=== PATIENT | female | born 1990 | race Caucasian/White ===

== ENCOUNTER 2017-11-13 11:55 | Emergency (ER) | payer OTHER ==
[~2017-11-13] VITALS: Ht 177.8 cm; Wt 68.0 kg
[~2017-11-13 11:55] MED LIST: ABILIFY 5 MG; ACET325 PO; BCP; BENADRYL25 MG PO; Benadryl 50 mg50 MG PO; CIPR500 PO; CYCL10 PO; Cleocin HCl300 MG PO; DIPH50 PO; ERYT.5TO RIGHTEYE; HYDACE5 PO; IBUP600 PO; IBUP800 PO; METPRE4DP PO; NAPR550 PO; Naprosyn500 MG PO; Norco 5-325 Ta1 EACH PO; OMEP10ER; PRED20 PO; Pepcid20 MG PO; Prednisone10 MG PO; Prednisone20 MG PO; RANI150 PO; RXCEPH500; RXNAPNA550 PO; SUMA25; TRIA80TC TOP; [UNRECOGNIZED DRUG - OTHER]
[2017-11-13 12:58] LABS: BASOPHILS ABSOLUTE AUTO 0.02 K/mm3 (0.00-0.23); BASOPHILS PERCENT AUTO 0 % (0-2); EOSINOPHILS ABSOLUTE AUTO 0.18 K/mm3 (0.00-0.68); EOSINOPHILS PERCENT AUTO 3 % (0-6); Hematocrit 41.1 % (33.0-51.0); Hemoglobin 13.3 g/dL (11.5-16.0); IMMATURE GRAN ABSOLUTE AUTO 0.01 K/mm3 (0.00-0.10); IMMATURE GRAN PERCENT AUTO 0 % (0-1); LYMPHOCYTES PERCENT AUTO 27 % (21-46); MONOCYTES ABSOLUTE AUTO 0.58 K/mm3 (0.16-1.47); MONOCYTES PERCENT AUTO 9 % (4-13); Mean Corpuscular HGB 27.9 pg (26.0-34.0); Mean Corpuscular HGB Conc 32.4 g/dL (31.5-36.5); Mean Corpuscular Volume 86 fL (80-100); Mean Platelet Volume 10.7 fL (9.1-12.4); NEUTROPHILS ABSOLUTE AUTO 4.11 K/mm3 (1.96-9.15); NEUTROPHILS PERCENT AUTO 61 % (41-73); Platelet Count 305 K/mm3 (150-400); RDW Coefficient Variation 13.2 % (11.7-14.2); RDW Standard Deviation 41.1 fL (35.1-46.3); Red Blood Cell Count 4.76 M/mm3 (3.80-5.20)
[2017-11-13 13:01] LABS: Source, Urine Clean Catch
[2017-11-13 13:08] LABS: Bilirubin, Urine Neg (Neg); Blood, Urine Neg (Neg); Glucose Qualitative, Urine Neg (Neg); Ketones, Urine Neg (Neg); Leukocyte Esterase, Urine 2+ (Neg); Nitrite, Urine Neg (Neg); Protein, Urine 2+ (Neg); Specific Gravity, Urine 1.015 (1.003-1.022); Urobilinogen, Urine NORM (Normal)
[2017-11-13 13:23] LABS: Alanine Aminotransfer (ALT/SGP 25 U/L (12-78); Albumin, Blood 3.8 g/dL (3.4-5.0); Albumin/Globulin Ratio 0.9 (0.8-1.8); Alk Phos 72 U/L (50-136); Anion Gap 8 mmol/L (6-16); Aspartate Aminotrans (AST/SGOT 15 U/L (12-37); Bilirubin, Total 0.2 mg/dL (0.1-1.0); Blood Urea Nitrogen 11 mg/dL (8-24); Bun/Creatinine Ratio 18.2 (12.0-20.0); CO2, Blood 27 mmol/L (21-32); Calcium, Blood 8.8 mg/dL (8.5-10.1); Chloride, Blood 105 mmol/L (98-108); Globulin, Blood 4.1 g/dL (2.2-4.0); Glomerular Filtration Rate >60 (60-); Glucose, Blood 70 mg/dL (70-99); Potassium, Blood 3.6 mmol/L (3.5-5.5); Sodium, Blood 140 mmol/L (136-145); Total Protein, Blood 7.9 g/dL (6.4-8.2)
[2017-11-13 13:23] LABS: Appearance, Urine Cloudy (Clear); Color, Urine Yellow (P-Yellow)
[2017-11-13 13:24] LABS: Bacteria Few /hpf; Red Blood Cells, Urine Not Seen /hpf (0-2); Squamous Epithelial Cells Few /hpf (Few)
[2017-11-13] MEDS ORDERED: IBUP600 PO (18:19)
[2018-04-10] MEDS ORDERED: CYCL10 PO (20:58)
[2018-08-09] MEDS ORDERED: Prednisone20 MG PO (22:27)
== END 2017-11-13 18:07 | disposition home or self-care (01) ==
LOC: ER 11:55
PROVIDERS: Emergency Medicine
DX: R10.31 Right lower quadrant pain (principal); Z79.52 Long term (current) use of systemic steroids; J45.909 Unspecified asthma, uncomplicated; F31.9 Bipolar disorder, unspecified; G43.909 Migraine, unspecified, not intractable, without status migrainosus; F17.210 Nicotine dependence, cigarettes, uncomplicated
CPT/HCPCS: 36415; 76856; 80053; 81001; 81025; 85025; 87086; 96374; 96375; 99284; J1170; J2405

== ENCOUNTER 2018-10-09 11:04 | Emergency (ER) | payer OTHER ==
[~2018-10-09] VITALS: Ht 177.8 cm; Wt 79.4 kg
[2018-10-09 11:48] LABS: BASOPHILS ABSOLUTE AUTO 0.04 K/mm3 (0.00-0.23); BASOPHILS PERCENT AUTO 0 % (0-2); EOSINOPHILS ABSOLUTE AUTO 0.06 K/mm3 (0.00-0.68); EOSINOPHILS PERCENT AUTO 0 % (0-6); Hematocrit 33.3 % (33.0-51.0); Hemoglobin 10.6 g/dL (11.5-16.0); IMMATURE GRAN ABSOLUTE AUTO 0.13 K/mm3 (0.00-0.10); IMMATURE GRAN PERCENT AUTO 1 % (0-1); LYMPHOCYTES ABSOLUTE AUTO 2.94 K/mm3 (0.84-5.20); LYMPHOCYTES PERCENT AUTO 16 % (21-46); MONOCYTES ABSOLUTE AUTO 0.65 K/mm3 (0.16-1.47); MONOCYTES PERCENT AUTO 4 % (4-13); Mean Corpuscular HGB 25.9 pg (26.0-34.0); Mean Corpuscular HGB Conc 31.8 g/dL (31.5-36.5); Mean Corpuscular Volume 81 fL (80-100); Mean Platelet Volume 10.4 fL (9.1-12.4); NEUTROPHILS ABSOLUTE AUTO 14.06 K/mm3 (1.96-9.15); NEUTROPHILS PERCENT AUTO 79 % (41-73); Platelet Count 352 K/mm3 (150-400); RDW Coefficient Variation 15.5 % (11.7-14.2); RDW Standard Deviation 45.2 fL (35.1-46.3); White Blood Cell Count 17.88 K/mm3 (4.00-11.30)
[2018-10-09 11:54] LABS: Source, Urine Voided
[2018-10-09 12:00] LABS: Bilirubin, Urine Neg (Neg); Blood, Urine Neg (Neg); Glucose Qualitative, Urine Neg (Neg); Ketones, Urine Neg (Neg); Leukocyte Esterase, Urine 2+ (Neg); Nitrite, Urine Neg (Neg); Protein, Urine Neg (Neg); Specific Gravity, Urine 1.015 (1.003-1.022); Urobilinogen, Urine NORM (Normal)
[2018-10-09 12:09] LABS: Appearance, Urine Clear (Clear); Color, Urine Yellow (P-Yellow)
[2018-10-09 12:12] LABS: Bacteria Few /hpf; Red Blood Cells, Urine 0-2 /hpf (0-2); Squamous Epithelial Cells Few /hpf (Few); Trichomonas Few /hpf
[2018-10-09 12:14] LABS: U Amphetamine Screen DETECTED; U Barbituate Screen Not Detected; U Benzodiazapine Screen Not Detected; U Buprenorphine Screen Not Detected; U Cannabinoids Screen DETECTED; U Cocaine Screen Not Detected; U Methadone Screen Not Detected; U Methamphetamine Screen DETECTED; U Opiates Screen Not Detected; U Oxycodone Screen Not Detected; U Phencyclidine Screen Not Detected; U Propoxyphene Screen Not Detected
[2018-10-09 12:19] LABS: Alanine Aminotransfer (ALT/SGP 18 U/L (12-78); Albumin, Blood 2.9 g/dL (3.4-5.0); Albumin/Globulin Ratio 0.7 (0.8-1.8); Alk Phos 88 U/L (50-136); Anion Gap 10 mmol/L (6-16); Aspartate Aminotrans (AST/SGOT 13 U/L (12-37); Bilirubin, Total 0.1 mg/dL (0.1-1.0); Blood Urea Nitrogen 9 mg/dL (8-24); Bun/Creatinine Ratio 16.4 (12.0-20.0); CO2, Blood 24 mmol/L (21-32); Calcium, Blood 7.8 mg/dL (8.5-10.1); Chloride, Blood 108 mmol/L (98-108); Creatinine, Blood 0.55 mg/dL (0.40-1.00); Glomerular Filtration Rate >60 (60-); Glucose, Blood 111 mg/dL (70-99); Potassium, Blood 3.3 mmol/L (3.5-5.5); Sodium, Blood 142 mmol/L (136-145); Total Protein, Blood 6.9 g/dL (6.4-8.2)
[2018-10-09 12:22] LABS: Beta HCG, Quantitative, Serum 10256 mIU/mL (0-3)
[2018-10-09] MEDS ORDERED: Prenatabs Rx T1 EACH PO (12:54)
== END 2018-10-09 13:40 | disposition home or self-care (01) ==
LOC: ER 11:04
PROVIDERS: Emergency Medicine
DX: O99.322 Drug use complicating pregnancy, second trimester (principal); F15.90 Other stimulant use, unspecified, uncomplicated; Z79.52 Long term (current) use of systemic steroids; O99.332 Smoking (tobacco) complicating pregnancy, second trimester; F17.210 Nicotine dependence, cigarettes, uncomplicated; Z3A.22 22 weeks gestation of pregnancy
CPT/HCPCS: 36415; 76705; 76805; 80053; 81001; 83690; 84702; 85025; 87086; 99284-25

== ENCOUNTER → 2018-10-23 | Outpatient (CLI) | payer OTHER ==
[~2018-10-23] MED LIST changes: +Prenatabs Rx T1 EACH PO
[2018-10-29 10:10] LABS: CHLAMYDIA BY NAA Negative (Negative); GONOCOCCUS BY NAA Negative (Negative)
[2018-10-30 09:32] LABS: TRICH VAG BY NAA Positive (Negative)
== END | disposition home or self-care (01) ==
LOC: LAB 14:44 → LAB SHORT 14:44
PROVIDERS: Obstetrics & Gynecology
DX: Z36.89 Encounter for other specified antenatal screening (principal)
CPT/HCPCS: 87491; 87591; 87661; G0123

== ENCOUNTER 2018-12-27 22:01 | Emergency (ER) | payer OTHER ==
[~2018-12-27] VITALS: Ht 177.8 cm; Wt 88.9 kg
== END 2018-12-27 22:39 | disposition left against medical advice (07) ==
LOC: ER 22:01
DX: Z53.21 Procedure and treatment not carried out due to patient leaving prior to being seen by health care provider (principal)

== ENCOUNTER → 2019-01-13 | Outpatient (CLI) | payer OTHER | END | disposition home or self-care (01) | LOC: LAB SHORT 12:12 → LAB 12:12 | DX: Z34.00 Encounter for supervision of normal first pregnancy, unspecified trimester (principal) | CPT/HCPCS: 87081; 87653 ==

== ENCOUNTER 2019-02-08 04:10 | Inpatient (IN) | payer OTHER ==
[~2019-02-08] VITALS: Ht 177.8 cm; Wt 97.2 kg
[2019-02-08 05:23] LABS: U Amphetamine Screen Not Detected; U Barbituate Screen Not Detected; U Benzodiazapine Screen Not Detected; U Buprenorphine Screen Not Detected; U Cannabinoids Screen Not Detected; U Cocaine Screen Not Detected; U Methadone Screen Not Detected; U Methamphetamine Screen Not Detected; U Opiates Screen Not Detected; U Oxycodone Screen Not Detected; U Phencyclidine Screen Not Detected; U Propoxyphene Screen Not Detected
[2019-02-08 06:19] LABS: BASOPHILS ABSOLUTE AUTO 0.03 K/mm3 (0.00-0.23); BASOPHILS PERCENT AUTO 0 % (0-2); EOSINOPHILS ABSOLUTE AUTO 0.13 K/mm3 (0.00-0.68); EOSINOPHILS PERCENT AUTO 1 % (0-6); Hematocrit 34.5 % (33.0-51.0); Hemoglobin 11.2 g/dL (11.5-16.0); IMMATURE GRAN ABSOLUTE AUTO 0.06 K/mm3 (0.00-0.10); IMMATURE GRAN PERCENT AUTO 0 % (0-1); LYMPHOCYTES ABSOLUTE AUTO 2.19 K/mm3 (0.84-5.20); LYMPHOCYTES PERCENT AUTO 15 % (21-46); MONOCYTES ABSOLUTE AUTO 1.03 K/mm3 (0.16-1.47); MONOCYTES PERCENT AUTO 7 % (4-13); Mean Corpuscular HGB 26.9 pg (26.0-34.0); Mean Corpuscular HGB Conc 32.5 g/dL (31.5-36.5); Mean Corpuscular Volume 83 fL (80-100); Mean Platelet Volume 11.8 fL (9.1-12.4); NEUTROPHILS ABSOLUTE AUTO 11.56 K/mm3 (1.96-9.15); NEUTROPHILS PERCENT AUTO 77 % (41-73); Platelet Count 283 K/mm3 (150-400); RDW Coefficient Variation 17.4 % (11.7-14.2); RDW Standard Deviation 52.3 fL (35.1-46.3); Red Blood Cell Count 4.16 M/mm3 (3.80-5.20)
--- NOTE | 2019-02-08 06:21 | NUR ---
iv ATTEMPTED X 4 BY l&d RNs IV started by Devendra, MATERIAL ASSEMBLER nurse using US localization/insertion finder
--- NOTE | 2019-02-08 07:19 | NUR ---
upon admission pt requested that a UA (drug screen) be done on her boyfriend. She stated that she thought that he has "fallen off the wagon". Informed her that we could not do the test on him.
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
[2019-02-08 13:14] LABS: PCO2 Cord - Arterial 37.9 mmHg (40-50); PO2 Cord - Arterial 21.4 mmHg (16-20); pH Cord - Arterial 7.11 (7.28-7.35)
[2019-02-08 13:16] LABS: PCO2 Cord - Venous 50.9 mmHg (40-50); PO2 Cord - Venous 25.8 mmHg (28-32); pH Umbilical Cord - Venous 7.21 (7.26-7.35)
--- NOTE | 2019-02-08 20:17 | NUR ---
PT HAS FRESH ICE WATER. ALL TRASH AND DIRTY LINEN REMOVED FROM ROOM.
[2019-02-09 05:52] LABS: Hematocrit 35.7 % (33.0-51.0); Hemoglobin 11.2 g/dL (11.5-16.0); Mean Corpuscular HGB 26.9 pg (26.0-34.0); Mean Corpuscular HGB Conc 31.4 g/dL (31.5-36.5); Mean Platelet Volume 11.1 fL (9.1-12.4); Platelet Count 300 K/mm3 (150-400); RDW Coefficient Variation 17.3 % (11.7-14.2); RDW Standard Deviation 54.4 fL (35.1-46.3); Red Blood Cell Count 4.16 M/mm3 (3.80-5.20); White Blood Cell Count 14.92 K/mm3 (4.00-11.30)
[2019-02-09 05:53] LABS: Mean Corpuscular Volume 86 fL (80-100)
--- NOTE | 2019-02-09 10:59 | NUR ---
CONSULT. BABY SUCKLING AT BREAST, MOM ACHIEVED A GOOD LATCH WITHOUT ASSISTANCE. BABY LEFT NIPPLE ROUNDED UPON RELEASE. INSTRUCT IN CHANGES TO EXPECT WITH BABY AND WITH FEEDINGS DURING THE FIRST WEEK AND REFERRED TO [facility] AND PAGE 18 OF [facility] FOR PHOTOS AND INFORMATION. QUESTIONS ANSWERED. LOVING WITH BABY.
--- NOTE | 2019-02-09 12:32 | NUR ---
PLAN IN PLACE FOR PT TO TAKE NB HOME AND CPS TO FOLLOW UP ON SUNDAY.
[2019-02-09] MEDS ORDERED: IBU800 MG PO (14:57)
--- NOTE | 2019-02-09 15:49 | NUR ---
PT STATES HER COUGH IS GETTING WORSE. LUNGS AUSCULTATED AND SOUNDS WHEEZY. VITAL SIGNS AND PULSE OX OF 98% ON ROOM AIR. DENIES SHORTNESS OF BREATH. NEGATIVE HOMANS SIGN, NO PAIN OR TENDERNESS IN BLE. PT STATES SHE IS A SMOKER AND SHE HAS ALLERGIES. Maria Alejandra HAY CNM CALLED AND MESSAGE LEFT FOR CALLBACK TO BE NOTIFIED.
--- NOTE | 2019-02-09 16:13 | NUR ---
2 Prescriptions called into [facility] off [address]. Spoke to Dede, pharmacist. 800 mg Motrin 1 tab po Q8P for cramps, dispense 30, no refills. albulerol inhaler 1-2 puffs PO q4-6hrs PRN for wheezing
--- NOTE | 2019-02-09 18:49 | NUR ---
DISCHARGE INSTRUCTIONS, WRITTEN AND VERBAL, GIVEN TO PT AND Elizabeth MCDONALD. ANSWERED ALL QUESTIONS AND CONCERNS. PT WILL BE DISCHARGED TO BOARDER STATUS AFTER BLOOD PRESSURE STABILIZATION.
== END 2019-02-09 19:58 | disposition home or self-care (01) | DRG 807 ==
LOC: OBS 04:10 → BC 04:11 → OBS 04:57 → BC 04:58
PROVIDERS: ADMIT Advanced Practice Midwife
PROC: 10D07Z6 Extraction of Products of Conception, Vacuum, Via Natural or Artificial Opening (ICD-10-PCS; principal; 2019-02-08)
PROC: 10907ZC Drainage of Amniotic Fluid, Therapeutic from Products of Conception, Via Natural or Artificial Opening (ICD-10-PCS; 2019-02-08)
PROC: 0UQMXZZ Repair Vulva, External Approach (ICD-10-PCS; 2019-02-08)
PROC: 0UQG7ZZ Repair Vagina, Via Natural or Artificial Opening (ICD-10-PCS; 2019-02-08)
DX: O99.824 Streptococcus B carrier state complicating childbirth (principal); Z37.0 Single live birth; O76 Abnormality in fetal heart rate and rhythm complicating labor and delivery; Z3A.40 40 weeks gestation of pregnancy; O70.0 First degree perineal laceration during delivery; O71.4 Obstetric high vaginal laceration alone
CPT/HCPCS: 36415; 82803; 85025; 85027; 94640; 94760; J0290; J1885; J2210; J2590; J3010; J7120

== ENCOUNTER 2020-11-05 14:46 | Emergency (ER) | payer OTHER ==
[~2020-11-05] VITALS: Ht 167.6 cm; Wt 69.8 kg
[~2020-11-05 14:46] MED LIST changes: +IBU800 MG PO
[2020-11-05 15:17] LABS: Source, Urine Clean Catch
[2020-11-05 15:27] LABS: BASOPHILS ABSOLUTE AUTO 0.02 K/mm3 (0.00-0.23); BASOPHILS PERCENT AUTO 0 % (0-2); EOSINOPHILS ABSOLUTE AUTO 0.07 K/mm3 (0.00-0.68); EOSINOPHILS PERCENT AUTO 1 % (0-6); Hematocrit 38.2 % (33.0-51.0); Hemoglobin 12.7 g/dL (11.5-16.0); IMMATURE GRAN ABSOLUTE AUTO 0.02 K/mm3 (0.00-0.10); IMMATURE GRAN PERCENT AUTO 0 % (0-1); LYMPHOCYTES ABSOLUTE AUTO 2.75 K/mm3 (0.84-5.20); LYMPHOCYTES PERCENT AUTO 24 % (21-46); MONOCYTES ABSOLUTE AUTO 0.49 K/mm3 (0.16-1.47); MONOCYTES PERCENT AUTO 4 % (4-13); Mean Corpuscular HGB 28.1 pg (26.0-34.0); Mean Corpuscular HGB Conc 33.2 g/dL (31.5-36.5); Mean Corpuscular Volume 85 fL (80-100); Mean Platelet Volume 11.4 fL (9.1-12.4); NEUTROPHILS PERCENT AUTO 70 % (41-73); Platelet Count 262 K/mm3 (150-400); RDW Standard Deviation 40.4 fL (35.1-46.3); Red Blood Cell Count 4.52 M/mm3 (3.80-5.20); White Blood Cell Count 11.25 K/mm3 (4.00-11.30)
[2020-11-05 15:29] LABS: Appearance, Urine Clear (Clear); Bilirubin, Urine Neg (Neg); Blood, Urine 5+ (Neg); Color, Urine Yellow (P-Yellow); Glucose Qualitative, Urine Neg (Neg); Ketones, Urine 3+ (Neg); Leukocyte Esterase, Urine Neg (Neg); Nitrite, Urine Neg (Neg); Protein, Urine Neg (Neg); Urobilinogen, Urine NORM (Normal)
[2020-11-05 15:39] LABS: Bacteria Not Seen /hpf; Red Blood Cells, Urine 0-2 /hpf (0-2); Squamous Epithelial Cells Few /hpf (Few); White Blood Cells, Urine 0-2 /hpf (0-5)
[2020-11-05 16:00] LABS: Alanine Aminotransfer (ALT/SGP 21 U/L (12-78); Albumin, Blood 3.7 g/dL (3.4-5.0); Albumin/Globulin Ratio 0.9 (0.8-1.8); Alk Phos 66 U/L (50-136); Anion Gap 8 mmol/L (6-16); Aspartate Aminotrans (AST/SGOT 10 U/L (12-37); Beta HCG, Quantitative, Serum 13208 mIU/mL (0-3); Bilirubin, Total 0.4 mg/dL (0.1-1.0); Blood Urea Nitrogen 7 mg/dL (8-24); Bun/Creatinine Ratio 13.3 (12.0-20.0); CO2, Blood 25 mmol/L (21-32); Calcium, Blood 8.6 mg/dL (8.5-10.1); Chloride, Blood 105 mmol/L (98-108); Creatinine, Blood 0.53 mg/dL (0.40-1.00); Glomerular Filtration Rate >60 (60-); Glucose, Blood 89 mg/dL (70-99); Potassium, Blood 3.1 mmol/L (3.5-5.5); Sodium, Blood 138 mmol/L (136-145); Total Protein, Blood 7.7 g/dL (6.4-8.2)
== END 2020-11-05 19:13 | disposition home or self-care (01) ==
LOC: ER 14:46
PROVIDERS: Physician Assistant
DX: O20.9 Hemorrhage in early pregnancy, unspecified (principal); F17.210 Nicotine dependence, cigarettes, uncomplicated; Z3A.15 15 weeks gestation of pregnancy
CPT/HCPCS: 36415; 76815; 80053; 81001; 84702; 85025; 99284-25

== ENCOUNTER 2021-02-28 15:25 | Emergency (ER) | payer OTHER ==
[~2021-02-28] VITALS: Ht 172.7 cm; Wt 83.9 kg
== END 2021-02-28 16:41 | disposition home or self-care (01) ==
LOC: ER 15:25
DX: S63.92XA Sprain of unspecified part of left wrist and hand, initial encounter (principal); J45.909 Unspecified asthma, uncomplicated; F17.210 Nicotine dependence, cigarettes, uncomplicated; W18.30XA Fall on same level, unspecified, initial encounter
CPT/HCPCS: 73130; 99283-25

== ENCOUNTER → 2021-03-30 | Outpatient (CLI) | payer OTHER ==
[2021-04-01 02:21] LABS: CHLAMYDIA TRACHOMATIS, NAA Negative (Negative)
== END | disposition home or self-care (01) ==
LOC: LAB 16:11 → LAB SHORT 16:11
PROVIDERS: Obstetrics & Gynecology
DX: Z11.3 Encounter for screening for infections with a predominantly sexual mode of transmission (principal)
CPT/HCPCS: 87491; 87591

== ENCOUNTER 2021-05-11 09:39 | Emergency (ER) | payer OTHER ==
[~2021-05-11] VITALS: Ht 172.7 cm; Wt 79.4 kg
[2021-05-11] MEDS ORDERED: ZAFEMY 150-351 EACH TD (10:06)
[2021-05-11 10:16] LABS: BASOPHILS ABSOLUTE AUTO 0.04 K/mm3 (0.00-0.23); BASOPHILS PERCENT AUTO 1 % (0-2); EOSINOPHILS ABSOLUTE AUTO 0.17 K/mm3 (0.00-0.68); EOSINOPHILS PERCENT AUTO 2 % (0-6); Hematocrit 41.1 % (33.0-51.0); Hemoglobin 13.5 g/dL (11.5-16.0); IMMATURE GRAN ABSOLUTE AUTO 0.01 K/mm3 (0.00-0.10); IMMATURE GRAN PERCENT AUTO 0 % (0-1); LYMPHOCYTES ABSOLUTE AUTO 2.45 K/mm3 (0.84-5.20); LYMPHOCYTES PERCENT AUTO 29 % (21-46); MONOCYTES ABSOLUTE AUTO 0.53 K/mm3 (0.16-1.47); MONOCYTES PERCENT AUTO 6 % (4-13); Mean Corpuscular HGB 27.6 pg (26.0-34.0); Mean Corpuscular HGB Conc 32.8 g/dL (31.5-36.5); Mean Corpuscular Volume 84 fL (80-100); Mean Platelet Volume 11.8 fL (9.1-12.4); NEUTROPHILS ABSOLUTE AUTO 5.38 K/mm3 (1.96-9.15); NEUTROPHILS PERCENT AUTO 63 % (41-73); Platelet Count 279 K/mm3 (150-400); RDW Coefficient Variation 13.1 % (11.7-14.2); RDW Standard Deviation 40.2 fL (35.1-46.3); Red Blood Cell Count 4.89 M/mm3 (3.80-5.20); White Blood Cell Count 8.58 K/mm3 (4.00-11.30)
[2021-05-11 10:33] LABS: Alanine Aminotransfer (ALT/SGP 23 U/L (12-78); Albumin, Blood 3.7 g/dL (3.4-5.0); Albumin/Globulin Ratio 0.9 (0.8-1.8); Alk Phos 57 U/L (50-136); Anion Gap 5 mmol/L (6-16); Aspartate Aminotrans (AST/SGOT 9 U/L (12-37); Bilirubin, Direct 0.1 mg/dL (0.0-0.3); Bilirubin, Total 0.2 mg/dL (0.1-1.0); Blood Urea Nitrogen 13 mg/dL (8-24); CO2, Blood 27 mmol/L (21-32); Calcium, Blood 8.7 mg/dL (8.5-10.1); Chloride, Blood 108 mmol/L (98-108); Creatinine, Blood 0.69 mg/dL (0.40-1.00); Globulin, Blood 4.1 g/dL (2.2-4.0); Glomerular Filtration Rate >60 (60-); Glucose, Blood 104 mg/dL (70-99); Potassium, Blood 3.9 mmol/L (3.5-5.5); Sodium, Blood 140 mmol/L (136-145); Total Protein, Blood 7.8 g/dL (6.4-8.2)
== END 2021-05-11 12:25 | disposition home or self-care (01) ==
LOC: ER 09:39
PROVIDERS: Emergency Medicine
DX: K29.70 Gastritis, unspecified, without bleeding (principal); G43.909 Migraine, unspecified, not intractable, without status migrainosus; F17.210 Nicotine dependence, cigarettes, uncomplicated; Z79.899 Other long term (current) drug therapy
CPT/HCPCS: 36415; 76705; 80053; 82248; 83690; 85025; 96374; 99284-25; A9270

== ENCOUNTER 2021-10-04 18:34 | Emergency (ER) | payer OTHER ==
[~2021-10-04] VITALS: Ht 170.2 cm; Wt 81.7 kg
[~2021-10-04 18:34] MED LIST changes: +ZAFEMY 150-351 EACH TD
[2021-10-04] MEDS ORDERED: ONDA4ODT MM (21:33)
== END 2021-10-04 21:50 | disposition home or self-care (01) ==
LOC: ER 18:34
DX: B34.9 Viral infection, unspecified (principal); J45.909 Unspecified asthma, uncomplicated; Z87.891 Personal history of nicotine dependence
CPT/HCPCS: 81025; 99283; A9270

== ENCOUNTER 2021-11-11 12:59 | Emergency (ER) | payer OTHER ==
[~2021-11-11] VITALS: Ht 172.7 cm; Wt 79.4 kg
[~2021-11-11 12:59] MED LIST changes: +ONDA4ODT MM
[2021-11-11 13:28] LABS: BASOPHILS ABSOLUTE AUTO 0.02 K/mm3 (0.00-0.23); BASOPHILS PERCENT AUTO 0 % (0-2); EOSINOPHILS ABSOLUTE AUTO 0.13 K/mm3 (0.00-0.68); EOSINOPHILS PERCENT AUTO 2 % (0-6); Hemoglobin 12.4 g/dL (11.5-16.0); IMMATURE GRAN ABSOLUTE AUTO 0.01 K/mm3 (0.00-0.10); IMMATURE GRAN PERCENT AUTO 0 % (0-1); LYMPHOCYTES ABSOLUTE AUTO 3.34 K/mm3 (0.84-5.20); LYMPHOCYTES PERCENT AUTO 50 % (21-46); MONOCYTES ABSOLUTE AUTO 0.28 K/mm3 (0.16-1.47); MONOCYTES PERCENT AUTO 4 % (4-13); Mean Corpuscular HGB 28.8 pg (26.0-34.0); Mean Corpuscular HGB Conc 34.4 g/dL (31.5-36.5); Mean Corpuscular Volume 84 fL (80-100); Mean Platelet Volume 11.3 fL (9.1-12.4); NEUTROPHILS ABSOLUTE AUTO 2.97 K/mm3 (1.96-9.15); NEUTROPHILS PERCENT AUTO 44 % (41-73); Platelet Count 285 K/mm3 (150-400); RDW Coefficient Variation 12.4 % (11.7-14.2); RDW Standard Deviation 37.4 fL (35.1-46.3); White Blood Cell Count 6.75 K/mm3 (4.00-11.30)
[2021-11-11 13:44] LABS: Source, Urine Clean Catch
[2021-11-11 13:49] LABS: Appearance, Urine Hazy (Clear); Bilirubin, Urine Neg (Neg); Blood, Urine Neg (Neg); Color, Urine Yellow (P-Yellow); Glucose Qualitative, Urine Neg (Neg); Ketones, Urine 1+ (Neg); Leukocyte Esterase, Urine 1+ (Neg); Nitrite, Urine Neg (Neg); Protein, Urine 1+ (Neg); Specific Gravity, Urine 1.015 (1.003-1.022); Urobilinogen, Urine NORM (Normal)
[2021-11-11 13:51] LABS: Alanine Aminotransfer (ALT/SGP 31 U/L (12-78); Albumin, Blood 3.8 g/dL (3.4-5.0); Alk Phos 52 U/L (50-136); Anion Gap 6 mmol/L (6-16); Aspartate Aminotrans (AST/SGOT 23 U/L (12-37); Bilirubin, Total 0.2 mg/dL (0.1-1.0); Blood Urea Nitrogen 15 mg/dL (8-24); Bun/Creatinine Ratio 19.8 (12.0-20.0); CO2, Blood 27 mmol/L (21-32); Calcium, Blood 8.4 mg/dL (8.5-10.1); Chloride, Blood 106 mmol/L (98-108); Creatinine, Blood 0.76 mg/dL (0.40-1.00); Globulin, Blood 3.7 g/dL (2.2-4.0); Glomerular Filtration Rate >60 (60-); Glucose, Blood 110 mg/dL (70-99); Potassium, Blood 3.5 mmol/L (3.5-5.5); Sodium, Blood 139 mmol/L (136-145); Total Protein, Blood 7.5 g/dL (6.4-8.2)
[2021-11-11 14:09] LABS: Amorphous Light (0-Heavy); Bacteria Mod /hpf; Red Blood Cells, Urine Rare /hpf (0-2); Squamous Epithelial Cells Few /hpf (Few); White Blood Cells, Urine 0-2 /hpf (0-5); Yeast/Fungi Urine Rare /hpf
[2021-11-11] MEDS ORDERED: SUCR1 PO (18:24)
[2021-11-11] MEDS ORDERED: OMEP20ER PO (18:24)
== END 2021-11-11 18:28 | disposition home or self-care (01) ==
LOC: ER 12:59
PROVIDERS: Physician Assistant
DX: R10.13 Epigastric pain (principal); R19.5 Other fecal abnormalities; G43.909 Migraine, unspecified, not intractable, without status migrainosus; Z79.899 Other long term (current) drug therapy
CPT/HCPCS: 36415; 80053; 81001; 81025; 82272; 83690; 85025; 87086; 99284; A9270

== ENCOUNTER → 2022-04-04 | Outpatient (CLI) | payer OTHER ==
[~2022-04-04] MED LIST changes: +OMEP20ER PO; +SUCR1 PO
[2022-04-05 16:08] LABS: HPV 16 Negative (Negative); HPV 18 Negative (Negative); HPV OTHER HR TYPES Negative (Negative)
== END | disposition home or self-care (01) ==
LOC: LAB SHORT 17:29 → LAB 17:29
PROVIDERS: Obstetrics & Gynecology
DX: Z01.419 Encounter for gynecological examination (general) (routine) without abnormal findings (principal)
CPT/HCPCS: 87624; G0123

== ENCOUNTER 2022-04-11 06:08 | Day surgery (SDC) | payer OTHER ==
[~2022-04-11] VITALS: Ht 170.2 cm; Wt 87.9 kg
[2022-04-11] MEDS ORDERED: NAPROSYN500 MG PO (06:36)
== END 2022-04-11 08:16 | disposition home or self-care (01) ==
LOC: ORSCSDS 06:08
PROVIDERS: Orthopaedic Surgery
PROC: 01N50ZZ Release Median Nerve, Open Approach (ICD-10-PCS; principal; 2022-04-11 07:30)
DX: G56.03 Carpal tunnel syndrome, bilateral upper limbs (principal); M25.531 Pain in right wrist; E66.9 Obesity, unspecified; M93.1 Kienbock's disease of adults; F41.9 Anxiety disorder, unspecified; Z68.30 Body mass index [BMI] 30.0-30.9, adult; R73.03 Prediabetes; Z87.891 Personal history of nicotine dependence
CPT/HCPCS: 82947; J2704; J7120

== ENCOUNTER 2022-06-29 21:27 | Emergency (ER) | payer OTHER ==
[~2022-06-29] VITALS: Ht 172.7 cm; Wt 95.7 kg
[~2022-06-29 21:27] MED LIST changes: +NAPROSYN500 MG PO
[2022-06-29] MEDS ORDERED: ALBU90OI INH (22:32)
[2022-06-29] MEDS ORDERED: PRED20 PO (22:32)
== END 2022-06-29 23:20 | disposition home or self-care (01) ==
LOC: ER 21:27
DX: J06.9 Acute upper respiratory infection, unspecified (principal); Z87.891 Personal history of nicotine dependence; Z20.822 Contact with and (suspected) exposure to COVID-19
CPT/HCPCS: 71046; 99283-25

== ENCOUNTER 2023-02-09 02:41 | Day surgery (SDC) | payer OTHER ==
[~2023-02-09 02:41] MED LIST changes: +ALBU90OI INH
[2023-02-09 14:35] VITALS: BP 138/81
[2023-02-09] MEDS ORDERED: TERB250 PO (15:22)
== END 2023-02-09 15:37 | disposition home or self-care (01) ==
LOC: ATC 02:41
DX: D50.9 Iron deficiency anemia, unspecified (principal); F41.9 Anxiety disorder, unspecified; F43.10 Post-traumatic stress disorder, unspecified; E78.5 Hyperlipidemia, unspecified
CPT/HCPCS: 96365; J2916

== ENCOUNTER 2023-02-16 04:03 | Day surgery (SDC) | payer OTHER ==
[~2023-02-16 04:03] MED LIST changes: +TERB250 PO
[2023-02-16 10:32] VITALS: BP 129/85
== END 2023-02-16 11:24 | disposition home or self-care (01) ==
LOC: ATC 04:03
DX: D50.9 Iron deficiency anemia, unspecified (principal)
CPT/HCPCS: 96365; J2916

== ENCOUNTER 2023-02-23 02:48 | Day surgery (SDC) | payer OTHER ==
[2023-02-23 14:26] VITALS: BP 138/84
== END 2023-02-23 15:33 | disposition home or self-care (01) ==
LOC: ATC 02:48
DX: D50.9 Iron deficiency anemia, unspecified (principal); E78.5 Hyperlipidemia, unspecified; F41.9 Anxiety disorder, unspecified
CPT/HCPCS: 96365; J2916

== ENCOUNTER 2023-03-30 02:19 | Emergency (ER) | payer OTHER ==
[~2023-03-30] VITALS: Ht 172.7 cm; Wt 99.8 kg
[2023-03-30 02:26] VITALS: BP 152/102
[2023-03-30] MEDS ORDERED: FEROSUL325 M1 PO (02:30)
[2023-03-30] MEDS ORDERED: AMOX875 PO (04:50)
== END 2023-03-30 04:56 | disposition home or self-care (01) ==
LOC: ER 02:19
DX: H66.92 Otitis media, unspecified, left ear (principal); J06.9 Acute upper respiratory infection, unspecified; J45.909 Unspecified asthma, uncomplicated; Z91.048 Other nonmedicinal substance allergy status; Z87.891 Personal history of nicotine dependence
CPT/HCPCS: 99282

== ENCOUNTER → 2024-05-05 | Outpatient (CLI) | payer OTHER ==
[~2024-05-05] MED LIST changes: +AMOX875 PO; +FEROSUL325 M1 PO
[2024-05-13 17:25] LABS: HPV HIGH RISK BY TMA Not Detected; HPV SOURCE Cervical
== END ==
LOC: LAB SHORT 17:20 → LAB 17:20
PROVIDERS: Nurse Practitioner Family
DX: Z01.419 Encounter for gynecological examination (general) (routine) without abnormal findings (principal)
CPT/HCPCS: 87624; G0123

== ENCOUNTER 2025-04-09 06:07 | Day surgery (SDC) | payer OTHER ==
[~2025-04-09] VITALS: Ht 172.7 cm; Wt 100.8 kg
[2025-04-09] MEDS ORDERED: CeFAZolin Sodium 2,000 MG VIAL ONE (06:31)
[2025-04-09] MEDS ORDERED: LOSA25 (06:36)
--- NOTE | 2025-04-09 06:55 | NUR ---
04/09/25 0655 YADIEL CARL pt's boyfriend brought back to pre op - call light in reach. pt awaiting or
[2025-04-09] MEDS ORDERED: FentaNYL Citrate 50 MCG/ML 2 ML Injection ONE (07:01)
[2025-04-09] MEDS ORDERED: Midazolam HCl 1MG / ML 2ML Vial ONE (07:01)
[2025-04-09] MEDS ORDERED: Dexamethasone Sod Phos 10 MG/ML 1ML VIAL ONE (07:03)
[2025-04-09] MEDS ORDERED: Ondansetron HCl 2 MG / ML 2ML Vial ONE ×2 (07:03→09:14)
[2025-04-09] MEDS ORDERED: Ropivacaine 0.5% HCL/PF 5 MG/ML 30ML Vial ONE ×2 (07:07→07:33)
[2025-04-09] MEDS ORDERED: Lidocaine HCl 2% 10 ML SDA INJ ONE (07:52)
[2025-04-09] MEDS ORDERED: Lidocaine HCl 2% 10 ML SDA ONE (09:13)
--- NOTE | 2025-04-09 09:22 | NUR ---
04/09/25 0922 Anita Parks PT ASKING FOR WATER, REPORTING THAT HER MOUTH FEELS VERY DRY. DENIES PAIN BUT C/O NAUSEA. ZOFRAN 4MG IV X1 GIVEN PER ORDERS AT 0917.
[2025-04-09 09:27] VITALS: BP 115/67
[2025-04-09] MEDS ORDERED: Metoclopramide HCl 5MG / ML 2ML Vial ONE (09:54)
--- NOTE | 2025-04-09 10:05 | NUR ---
04/09/25 1005 Quincy Helms 100Jostin ADMINISTERED REGLAN 10 MG IV FOR NAUSEA PER ANESTHESIA ORDER.
== END 2025-04-09 10:32 | disposition home or self-care (01) ==
LOC: ORSCSDS 06:07
PROVIDERS: Orthopaedic Surgery
PROC: 0PBN0ZZ Excision of Left Carpal, Open Approach (ICD-10-PCS; principal; 2025-04-09 07:30)
PROC: 0RQR0ZZ Repair Left Carpal Joint, Open Approach (ICD-10-PCS; principal; 2025-04-09 07:30)
DX: M92.212 Osteochondrosis (juvenile) of carpal lunate [Kienbock], left hand (principal); I10 Essential (primary) hypertension; Z87.891 Personal history of nicotine dependence; E11.9 Type 2 diabetes mellitus without complications; Z79.84 Long term (current) use of oral hypoglycemic drugs; Z79.899 Other long term (current) drug therapy
CPT/HCPCS: C1776; J0690; J1100; J2003; J2250; J2405; J2704; J2765; J2795; J3010; J7120

== ENCOUNTER 2025-06-07 10:32 | Inpatient (IN) | payer OTHER ==
[~2025-06-07] VITALS: Ht 172.7 cm; Wt 102.7 kg
[~2025-06-07 10:32] MED LIST changes: +LOSA25 PO
[2025-06-07 12:22] LABS: Alanine Aminotransfer (ALT/SGP 33.0 U/L (12-78); Albumin, Blood 3.7 g/dL (3.4-5.0); Albumin/Globulin Ratio 1.0 (0.8-1.8); Anion Gap 9.0 mmol/L (3-11); Aspartate Aminotrans (AST/SGOT 36.0 U/L (12-37); Bilirubin, Total 0.3 mg/dL (0.1-1.0); Blood Urea Nitrogen 10.0 mg/dL (8-24); CO2, Blood 22.0 mmol/L (21-32); Calcium, Blood 8.0 mg/dL (8.5-10.1); Chloride, Blood 109.0 mmol/L (98-108); Creatinine, Blood 0.53 mg/dL (0.40-1.00); Globulin, Blood 3.6 g/dL (2.2-4.0); Glucose, Blood 118.0 mg/dL (70-99); Potassium, Blood 4.5 mmol/L (3.5-5.5); Sodium, Blood 135.0 mmol/L (136-145); Total Protein, Blood 7.3 g/dL (6.4-8.2)
[2025-06-07 12:28] LABS: BASOPHILS ABSOLUTE AUTO 0.04 K/mm3 (0.00-0.23); BASOPHILS PERCENT AUTO 0 % (0-2); EOSINOPHILS ABSOLUTE AUTO 0.23 K/mm3 (0.00-0.68); EOSINOPHILS PERCENT AUTO 2 % (0-6); Hematocrit 40.2 % (33.0-51.0); Hemoglobin 13.7 g/dL (11.5-16.0); IMMATURE GRAN ABSOLUTE AUTO 0.05 K/mm3 (0.00-0.10); IMMATURE GRAN PERCENT AUTO 0 % (0-1); LYMPHOCYTES ABSOLUTE AUTO 3.29 K/mm3 (0.84-5.20); LYMPHOCYTES PERCENT AUTO 26 % (21-46); MONOCYTES ABSOLUTE AUTO 0.74 K/mm3 (0.16-1.47); MONOCYTES PERCENT AUTO 6 % (4-13); Mean Corpuscular HGB Conc 34.1 g/dL (31.5-36.5); Mean Corpuscular Volume 86 fL (80-100); NEUTROPHILS ABSOLUTE AUTO 8.53 K/mm3 (1.96-9.15); NEUTROPHILS PERCENT AUTO 66 % (41-73); NRBC ABSOLUTE 0.00 K/mm3 (0.00-0.02); NRBC Auto 0.0 /100 WBC (0.0-0.2); Platelet Count 295 K/mm3 (150-400); RDW Coefficient Variation 13.0 % (11.7-14.2); RDW Standard Deviation 40.2 fL (35.1-46.3)
[2025-06-07] MEDS ORDERED: CefTRIAXone Sodium 2,000 MG in NS 100 ML IV ONE (13:50)
[2025-06-07] MEDS ORDERED: Vancomycin (Pharmacy Consult) IV PRN (15:00)
[2025-06-07] MEDS ORDERED: Ketorolac Tromethamine 30mg Vial IV ONE (15:00)
[2025-06-07] MEDS ORDERED: FLU VACC TS2025-26(6MOS UP)/PF 45 MCG/0.5 ML SYRINGE IM SCH (15:25)
[2025-06-07] MEDS ORDERED: Ondansetron HCl 2 MG / ML 2ML Vial IV PRN (15:25)
[2025-06-07] MEDS ORDERED: Vancomycin (Pharmacy Consult) IV SCH (15:45)
[2025-06-07 16:52] VITALS: BP 154/101
--- NOTE | 2025-06-07 17:31 | NUR ---
ARRIVAL TO SURG FLOOR PT ARRIVED TO SURG FLOOR VIA GURNEY. A&O x4, VSS, HRR, LUNGS CLEAR. BP ELEVATED, SYSTOLIC IN 150'S, PT STATES HX HTN, LAST TOOK HOME BP MEDS THIS AM. STATES MINIMAL L PINKY FINGER PAIN w/SLIGHT REDNESS NOTED. SWELLING NOTED IN L PINKY & HAND. IND IN ROOM, ABLE TO MAKE NEEDS KNOWN. CURRENTLY RESTING IN BED, CALL LIGHT WITHIN REACH.
--- NOTE | 2025-06-07 19:21 | NUR ---
SHIFT SUMMARY SEE PREVIOUS NOTE, NO CHANGES. CURRENTLY RESTING w/FAMILY AT BEDSIDE. CALL LIGHT WITHIN REACH.
[2025-06-07 19:26] VITALS: BP 148/90
[2025-06-07] MEDS ORDERED: NS 250 ML IV PRN (20:50)
[2025-06-08] VITALS (13 sets, daily range): BP systolic 108–148; BP diastolic 54–91
[2025-06-08 05:21] LABS: BASOPHILS ABSOLUTE AUTO 0.05 K/mm3 (0.00-0.23); BASOPHILS PERCENT AUTO 1 % (0-2); EOSINOPHILS ABSOLUTE AUTO 0.27 K/mm3 (0.00-0.68); EOSINOPHILS PERCENT AUTO 3 % (0-6); Hematocrit 39.1 % (33.0-51.0); Hemoglobin 13.0 g/dL (11.5-16.0); IMMATURE GRAN ABSOLUTE AUTO 0.03 K/mm3 (0.00-0.10); IMMATURE GRAN PERCENT AUTO 0 % (0-1); LYMPHOCYTES ABSOLUTE AUTO 3.64 K/mm3 (0.84-5.20); LYMPHOCYTES PERCENT AUTO 33 % (21-46); MONOCYTES ABSOLUTE AUTO 0.76 K/mm3 (0.16-1.47); MONOCYTES PERCENT AUTO 7 % (4-13); Mean Corpuscular HGB Conc 33.2 g/dL (31.5-36.5); Mean Corpuscular Volume 89 fL (80-100); NEUTROPHILS ABSOLUTE AUTO 6.17 K/mm3 (1.96-9.15); NEUTROPHILS PERCENT AUTO 56 % (41-73); NRBC ABSOLUTE 0.00 K/mm3 (0.00-0.02); NRBC Auto 0.0 /100 WBC (0.0-0.2); Platelet Count 288 K/mm3 (150-400); RDW Coefficient Variation 12.8 % (11.7-14.2); RDW Standard Deviation 41.8 fL (35.1-46.3)
--- NOTE | 2025-06-08 05:30 | NUR ---
TURF FARM WORKER SUMMARY PT AAOX4 AND INDEPENDENT IN HER ROOM. PLEASANT AND COOPERATIVE. SOME SWELLING TO L HAND. PT REPORTS MINIMAL PAIN THROUGH MOST OF THE NIGHT UNTIL END OF SHIFT AND THEN REQUIRED SOME PAIN MEDS, SEE MAR. PT DENIES N/T TO THE L HAND. DR ALANIZ IN TO SEE PT TOWARD BEGINNING OF SHIFT AND WILL REASSESS HER HAND LATER TODAY. PT HAS BEEN NPO SINCE MIDNIGHT IN CASE SURGERY IS NEEDED. VSS, WCTASH.
[2025-06-08 05:43] LABS: Anion Gap 9.0 mmol/L (3-11); Blood Urea Nitrogen 7.0 mg/dL (8-24); CO2, Blood 22.0 mmol/L (21-32); Calcium, Blood 8.2 mg/dL (8.5-10.1); Chloride, Blood 110.0 mmol/L (98-108); Creatinine, Blood 0.59 mg/dL (0.40-1.00); Glucose, Blood 133.0 mg/dL (70-99); Potassium, Blood 3.7 mmol/L (3.5-5.5); Sodium, Blood 137.0 mmol/L (136-145)
[2025-06-08] MEDS ORDERED: CefTRIAXone Sodium 1,000 MG in NS 100 ML IV SCH (12:00)
[2025-06-08] MEDS ORDERED: CefTRIAXone Sodium 2,000 MG in NS 100 ML IV SCH (12:00)
[2025-06-08] MEDS ORDERED: FentaNYL Citrate 50 MCG/ML 2 ML Injection ONE ×2 (13:08→15:21)
[2025-06-08] MEDS ORDERED: Midazolam HCl 1MG / ML 2ML Vial ONE (13:08)
[2025-06-08] MEDS ORDERED: Lidocaine HCl 2% Jelly 120MG/6ML SYR (20MG PER ML) ONE (13:09)
--- NOTE | 2025-06-08 14:00 | NUR ---
to day surgery @1757
[2025-06-08] MEDS ORDERED: FentaNYL Citrate 50 MCG/ML 2 ML Injection IV PRN ×2 (14:30)
[2025-06-08] MEDS ORDERED: Ondansetron HCl 2 MG / ML 2ML Vial IV PRN (14:30)
[2025-06-08] MEDS ORDERED: HYDROmorphone HCl/Pf 1MG SYR IV PRN (14:30)
[2025-06-08] MEDS ORDERED: Prochlorperazine Edisylate 10 mg Vial IV PRN (14:30)
[2025-06-08] MEDS ORDERED: Lidocaine HCl 2% 10 ML SDA ONE (14:50)
[2025-06-08] MEDS ORDERED: Ketorolac Tromethamine 30mg Vial ONE (15:04)
[2025-06-08] MEDS ORDERED: Ondansetron HCl 2 MG / ML 2ML Vial ONE (15:04)
[2025-06-08] MEDS ORDERED: Dexamethasone Sod Phos 10 MG/ML 1ML VIAL ONE (15:04)
--- NOTE | 2025-06-08 16:03 | NUR ---
POST-OP PATIENT BACK TO ROOM @1600, GAUZE AND HAYLIE WRAP TO LEFT PINKY FINGER AND HAND, C/D/I. PATIENT IS AOX4, SLEEPY BUT APROPRIATE. VSS. ON RA. DENIES PAIN. DENIES NAUSEA. TAKINNG IN PO LIQUIDS AT THIS TIME. CALL LIGHT IN REACH.
--- NOTE | 2025-06-08 17:07 | NUR ---
ASSUMED CARE OF PT @1645. AXO4. VSS BUT STILL PRESENTS SOMEWHAT DROWSY. DRESSING CDI TO Carla CAPONE. DENYING PAIN AT THIS TIME. FAMILY NOTIFIED OF PT'S ARRIVAL TO UNIT POSTOP.
[2025-06-08 18:32] LABS: Vancomycin, Trough 9.6 ug/mL (5.0-10.0)
[2025-06-09 04:12] VITALS: BP 146/82
--- NOTE | 2025-06-09 04:28 | NUR ---
SHIFT SUMMARY CHARLINE WAS TRANSFERRED TO MY CARE DURING THE SHIFT FROM BRANDEN MENDIETA. PT WAS AWAKE, PAIN WELL CONTROLLED. NO CHANGES TO PT CONDITION WHILE IN MY CARE. PT WELL SEEMING AND W/O COMPLAINT.
[2025-06-09 05:41] LABS: BASOPHILS ABSOLUTE AUTO 0.02 K/mm3 (0.00-0.23); BASOPHILS PERCENT AUTO 0 % (0-2); EOSINOPHILS ABSOLUTE AUTO 0.01 K/mm3 (0.00-0.68); EOSINOPHILS PERCENT AUTO 0 % (0-6); Hematocrit 38.4 % (33.0-51.0); Hemoglobin 12.7 g/dL (11.5-16.0); IMMATURE GRAN ABSOLUTE AUTO 0.08 K/mm3 (0.00-0.10); IMMATURE GRAN PERCENT AUTO 1 % (0-1); LYMPHOCYTES ABSOLUTE AUTO 1.82 K/mm3 (0.84-5.20); LYMPHOCYTES PERCENT AUTO 12 % (21-46); MONOCYTES ABSOLUTE AUTO 0.75 K/mm3 (0.16-1.47); MONOCYTES PERCENT AUTO 5 % (4-13); Mean Corpuscular HGB Conc 33.1 g/dL (31.5-36.5); Mean Corpuscular Volume 87 fL (80-100); NEUTROPHILS ABSOLUTE AUTO 12.13 K/mm3 (1.96-9.15); NEUTROPHILS PERCENT AUTO 82 % (41-73); NRBC ABSOLUTE 0.00 K/mm3 (0.00-0.02); NRBC Auto 0.0 /100 WBC (0.0-0.2); Platelet Count 342 K/mm3 (150-400); RDW Coefficient Variation 13.0 % (11.7-14.2); RDW Standard Deviation 40.6 fL (35.1-46.3)
[2025-06-09 06:10] LABS: Anion Gap 12.0 mmol/L (3-11); Blood Urea Nitrogen 7.0 mg/dL (8-24); CO2, Blood 22.0 mmol/L (21-32); Calcium, Blood 8.5 mg/dL (8.5-10.1); Chloride, Blood 110.0 mmol/L (98-108); Creatinine, Blood 0.59 mg/dL (0.40-1.00); Glucose, Blood 169.0 mg/dL (70-99); Potassium, Blood 4.0 mmol/L (3.5-5.5); Sodium, Blood 140.0 mmol/L (136-145)
[2025-06-09 07:28] VITALS: BP 129/81
[2025-06-09] MEDS ORDERED: ACET500 PO (14:25)
[2025-06-09] MEDS ORDERED: OXYC5 PO (14:26)
[2025-06-09] MEDS ORDERED: DOXY100 PO (14:26)
--- NOTE | 2025-06-09 14:48 | NUR ---
F/U MADE w/ Dr Dejah Wick Sunday @ 14:50. Wrote on piece of paper & attatched to dc paperwork.
[2025-06-09 14:52] VITALS: BP 150/102
[2025-06-09 14:53] VITALS: BP 150/94
--- NOTE | 2025-06-09 15:01 | NUR ---
DISCHARGE NOTE PT IS A/OX4. TOLERATING INTAKE, NO N/V. PT DRESSING WAS CHANGED TODAY, C/D/I. PT EDUCATED AND DEMONSTRATED ON HOW TO CHANGE DRESSING AND WOUND CARE, PT VERBALIZED UNDERSTANDING. SUPPLIES SENT W/ PATIENT. EDUCATED ON IMPORTANCE OF COMPLETING ANTIBIOTICS. PT IS IND IN ROOM, REQUIRING MINIMAL ASSISTANCE T/O SHIFT. PT VERBALIZES UNDERSTANDING OF DC EDUCATION. DECLINES WC RIDE OUT. PT APPEARS EXCITED TO GO HOME.
== END 2025-06-09 15:30 | disposition home or self-care (01) | DRG 514 ==
LOC: ER 10:32 → SURS 10:33
PROVIDERS: Physician Assistant; ADMIT Student in an Organized Health Care Education/Training Program
PROC: 3E03329 Introduction of Other Anti-infective into Peripheral Vein, Percutaneous Approach (ICD-10-PCS; principal; 2025-06-07)
PROC: 0L980ZZ Drainage of Left Hand Tendon, Open Approach (ICD-10-PCS; 2025-06-08)
DX: M65.142 Other infective (teno)synovitis, left hand (principal); I10 Essential (primary) hypertension; Z87.891 Personal history of nicotine dependence
CPT/HCPCS: 36415; 73140; 73201; 80048; 80053; 80202; 84703; 85025; 85651; 86140; 87070; 87075; 87205; 96365-59; 96366; 96367; 96375; 96376; 99284-25; A9270; G0378; J0696; J1100; J1885; J2003; J2250; J2405; J2704; J3010; J3373; J7040; J7050; J7120; Q9967

== ENCOUNTER 2025-06-18 11:23 | Day surgery (SDC) | payer OTHER ==
[~2025-06-18] VITALS: Ht 172.7 cm; Wt 100.3 kg
[~2025-06-18 11:23] MED LIST changes: +ACET500 PO; +DOXY100 PO; +Lidocaine HCl 2% 10 ML SDA ONE; +OXYC5 PO
[2025-06-18] MEDS ORDERED: CeFAZolin Sodium 2,000 MG VIAL ONE (12:31)
[2025-06-18] MEDS ORDERED: FentaNYL Citrate 50 MCG/ML 2 ML Injection ONE ×2 (12:57→14:13)
[2025-06-18] MEDS ORDERED: Midazolam HCl 1MG / ML 2ML Vial ONE (12:57)
[2025-06-18] MEDS ORDERED: Ketorolac Tromethamine 30mg Vial ONE (13:19)
[2025-06-18] MEDS ORDERED: Ondansetron HCl 2 MG / ML 2ML Vial ONE (13:19)
[2025-06-18] MEDS ORDERED: HYDROcodone 5-APAP 325 TAB ONE (14:12)
--- NOTE | 2025-06-18 14:32 | NUR ---
06/18/25 1432 Maritza Lawrence PT C/O 6/10 POST OP PAIN. ICE AND ELEVATION DECREASED PAIN TO 5/10. PT STATED TOLERABLE PAIN LEVEL 3/10. PT GIVEN 25MCG FENTANYL FOR PAIN. POST FENTANYL, PAIN DECREASED TO 2/10. ORAL NORCO 5/325 GIVEN FOR POST OP PAIN MANAGEMENT. PT TOLERATING FLUIDS AND FOOD. BOYFRIEND GUY AT CHAIRSIDE. VSS ON RA. PT A&O X 4.
[2025-06-18 15:03] VITALS: BP 111/80
== END 2025-06-18 15:13 | disposition home or self-care (01) ==
LOC: ORSCSDS 11:23
PROVIDERS: Orthopaedic Surgery
PROC: 0RBP0ZZ Excision of Left Wrist Joint, Open Approach (ICD-10-PCS; principal; 2025-06-18 14:15)
PROC: 0LN80ZZ Release Left Hand Tendon, Open Approach (ICD-10-PCS; principal; 2025-06-18 14:15)
DX: M92.212 Osteochondrosis (juvenile) of carpal lunate [Kienbock], left hand (principal); Z98.890 Other specified postprocedural states; T81.40XA Infection following a procedure, unspecified, initial encounter; I10 Essential (primary) hypertension; Z79.899 Other long term (current) drug therapy
CPT/HCPCS: 87070; 87075; 87205; A9270; J0690; J1885; J2003; J2250; J2405; J2704; J3010; J7120

== ENCOUNTER 2025-08-10 18:29 | Inpatient (IN) | payer OTHER ==
[~2025-08-10] VITALS: Ht 172.7 cm; Wt 103.7 kg
[~2025-08-10 18:29] MED LIST changes: -Lidocaine HCl 2% 10 ML SDA ONE
[2025-08-10 19:05] LABS: BASOPHILS ABSOLUTE AUTO 0.07 K/mm3 (0.00-0.23); BASOPHILS PERCENT AUTO 0 % (0-2); EOSINOPHILS ABSOLUTE AUTO 0.11 K/mm3 (0.00-0.68); EOSINOPHILS PERCENT AUTO 1 % (0-6); Hematocrit 43.0 % (33.0-51.0); Hemoglobin 14.4 g/dL (11.5-16.0); IMMATURE GRAN ABSOLUTE AUTO 0.06 K/mm3 (0.00-0.10); IMMATURE GRAN PERCENT AUTO 0 % (0-1); LYMPHOCYTES ABSOLUTE AUTO 2.66 K/mm3 (0.84-5.20); LYMPHOCYTES PERCENT AUTO 15 % (21-46); MONOCYTES ABSOLUTE AUTO 0.62 K/mm3 (0.16-1.47); MONOCYTES PERCENT AUTO 3 % (4-13); Mean Corpuscular HGB Conc 33.5 g/dL (31.5-36.5); Mean Corpuscular Volume 86 fL (80-100); NEUTROPHILS ABSOLUTE AUTO 14.65 K/mm3 (1.96-9.15); NEUTROPHILS PERCENT AUTO 81 % (41-73); NRBC ABSOLUTE 0.00 K/mm3 (0.00-0.02); NRBC Auto 0.0 /100 WBC (0.0-0.2); Platelet Count 349 K/mm3 (150-400); RDW Coefficient Variation 12.6 % (11.7-14.2); RDW Standard Deviation 39.4 fL (35.1-46.3)
[2025-08-10 19:27] LABS: Alanine Aminotransfer (ALT/SGP 54.0 U/L (12-78); Albumin, Blood 4.7 g/dL (3.4-5.0); Albumin/Globulin Ratio 1.3 (0.8-1.8); Anion Gap 11.0 mmol/L (3-11); Aspartate Aminotrans (AST/SGOT 29.0 U/L (12-37); Bilirubin, Total 0.2 mg/dL (0.1-1.0); Blood Urea Nitrogen 9.0 mg/dL (8-24); CO2, Blood 25.0 mmol/L (21-32); Calcium, Blood 9.5 mg/dL (8.5-10.1); Chloride, Blood 105.0 mmol/L (98-108); Creatinine, Blood 0.65 mg/dL (0.40-1.00); Globulin, Blood 3.6 g/dL (2.2-4.0); Glucose, Blood 126.0 mg/dL (70-99); Magnesium, Blood 2.1 mg/dL (1.6-2.4); Potassium, Blood 3.7 mmol/L (3.5-5.5); Sodium, Blood 137.0 mmol/L (136-145); Total Protein, Blood 8.3 g/dL (6.4-8.2)
[2025-08-10 19:39] LABS: Source, Urine Clean Catch
[2025-08-10] MEDS ORDERED: Ondansetron HCl 2 MG / ML 2ML Vial IV ONE (19:40)
[2025-08-10 19:52] LABS: Bilirubin, Urine Neg (Neg); Color, Urine Brown (P-Yellow); Glucose Qualitative, Urine Neg (Neg); Ketones, Urine 1+ (Neg); Leukocyte Esterase, Urine 1+ (Neg); Protein, Urine 3+ (Neg); Specific Gravity, Urine 1.025 (1.003-1.022); Urobilinogen, Urine 1+ (Normal)
[2025-08-10 20:00] LABS: Red Blood Cells, Urine TNTC /hpf (0-2)
[2025-08-10] MEDS ORDERED: Ketorolac Tromethamine 15mg Vial IV ONE (20:40)
[2025-08-10] MEDS ORDERED: NS 1,000 ML IV SCH ×2 (20:40→21:40)
[2025-08-10] MEDS ORDERED: Ampicillin Sod/Sulbactam Sod 3 GM in NS 100 ML IV ONE (21:40)
[2025-08-10] MEDS ORDERED: Ondansetron HCl 2 MG / ML 2ML Vial IV PRN ×2 (21:55→22:45)
[2025-08-10] MEDS ORDERED: FLU VACC TS2025-26(6MOS UP)/PF 45 MCG/0.5 ML SYRINGE IM SCH (22:00)
[2025-08-10] MEDS ORDERED: Ketorolac Tromethamine 15mg Vial IV PRN (22:15)
[2025-08-10] MEDS ORDERED: Rocuronium Bromide 10 MG/ML 5ML Injection IV ONE (22:39)
[2025-08-10] MEDS ORDERED: Ondansetron HCl 2 MG / ML 2ML Vial ONE (22:39)
[2025-08-10] MEDS ORDERED: Metoclopramide HCl 5MG / ML 2ML Vial ONE (22:39)
[2025-08-10] MEDS ORDERED: Metoclopramide HCl 5MG / ML 2ML Vial IV PRN (22:40)
[2025-08-10] MEDS ORDERED: ePHEDrine Sulfate 50 MG/ML 1ML Injection IV PRN (22:40)
[2025-08-10] MEDS ORDERED: HYDROmorphone HCl/Pf 1MG SYR IV PRN (22:40)
[2025-08-10] MEDS ORDERED: Bupivacaine 0.5% W/EPI 1:200000 SDV 30 ML Vial ONE (22:40)
[2025-08-10] MEDS ORDERED: FentaNYL Citrate 50 MCG/ML 2 ML Injection IV PRN ×2 (22:40)
[2025-08-10] MEDS ORDERED: Morphine Sulfate 4 MG/1 ML Injection IV PRN (22:45)
[2025-08-10] MEDS ORDERED: FentaNYL Citrate 50 MCG/ML 2 ML Injection ONE (23:20)
[2025-08-10] MEDS ORDERED: Midazolam HCl 1MG / ML 2ML Vial ONE (23:33)
--- NOTE | 2025-08-10 23:43 | NUR ---
08/10/25 2343 Aileen East NO PREOP ANTIBIOTICS ORDERED PER PATIENT RECEIVED UNASYN 3GM IV IN THE ER PRIOR TO ARRIVING IN THE OR.
[2025-08-11] VITALS (16 sets, daily range): BP systolic 125–152; BP diastolic 75–91
[2025-08-11] MEDS ORDERED: FentaNYL Citrate 50 MCG/ML 2 ML Injection ONE (00:07)
[2025-08-11] MEDS ORDERED: Sugammadex Sodium 200 MG/2ML SDV (100 MG/ML) ONE (00:49)
--- NOTE | 2025-08-11 01:45 | NUR ---
PT ARRIVES TO ROOM VIA GURNEY FROM ICU RECOVERY. PT TRANSFERS TO BED FROM GURNEY. PT ORIENTED TO ROOM. PT REQUESTS GLASSES AND PHONE FROM BAG. PT ON ROOM AIR, A&OX4. PT ABLE TO MAKE NEEDS KNOWN. PT REPORTS BEING SLEEPY AND SLEEPS DURING ASSESSMENT; EASILY AWAKENS TO VOICE.
[2025-08-11 02:26] LABS: BASOPHILS ABSOLUTE AUTO 0.05 K/mm3 (0.00-0.23); BASOPHILS PERCENT AUTO 0 % (0-2); EOSINOPHILS ABSOLUTE AUTO 0.03 K/mm3 (0.00-0.68); EOSINOPHILS PERCENT AUTO 0 % (0-6); Hematocrit 39.1 % (33.0-51.0); Hemoglobin 12.8 g/dL (11.5-16.0); IMMATURE GRAN ABSOLUTE AUTO 0.04 K/mm3 (0.00-0.10); IMMATURE GRAN PERCENT AUTO 0 % (0-1); LYMPHOCYTES ABSOLUTE AUTO 1.88 K/mm3 (0.84-5.20); LYMPHOCYTES PERCENT AUTO 12 % (21-46); MONOCYTES ABSOLUTE AUTO 0.46 K/mm3 (0.16-1.47); MONOCYTES PERCENT AUTO 3 % (4-13); Mean Corpuscular HGB Conc 32.7 g/dL (31.5-36.5); Mean Corpuscular Volume 87 fL (80-100); NEUTROPHILS ABSOLUTE AUTO 12.93 K/mm3 (1.96-9.15); NEUTROPHILS PERCENT AUTO 84 % (41-73); NRBC ABSOLUTE 0.00 K/mm3 (0.00-0.02); NRBC Auto 0.0 /100 WBC (0.0-0.2); Platelet Count 289 K/mm3 (150-400); RDW Coefficient Variation 12.6 % (11.7-14.2); RDW Standard Deviation 40.0 fL (35.1-46.3)
[2025-08-11 02:44] LABS: Alanine Aminotransfer (ALT/SGP 43.0 U/L (12-78); Albumin, Blood 3.7 g/dL (3.4-5.0); Albumin/Globulin Ratio 1.2 (0.8-1.8); Anion Gap 11.0 mmol/L (3-11); Aspartate Aminotrans (AST/SGOT 16.0 U/L (12-37); Bilirubin, Total 0.3 mg/dL (0.1-1.0); Blood Urea Nitrogen 8.0 mg/dL (8-24); CO2, Blood 21.0 mmol/L (21-32); Calcium, Blood 7.9 mg/dL (8.5-10.1); Chloride, Blood 109.0 mmol/L (98-108); Creatinine, Blood 0.63 mg/dL (0.40-1.00); Globulin, Blood 3.1 g/dL (2.2-4.0); Glucose, Blood 188.0 mg/dL (70-99); Potassium, Blood 3.8 mmol/L (3.5-5.5); Sodium, Blood 137.0 mmol/L (136-145); Total Protein, Blood 6.8 g/dL (6.4-8.2)
[2025-08-11] MEDS ORDERED: FentaNYL Citrate 50 MCG/ML 2 ML Injection IV PRN (05:20)
[2025-08-11] MEDS ORDERED: Naloxone HCl 0.4MG / ML 1ML Vial IV PRN (05:20)
--- NOTE | 2025-08-11 05:50 | NUR ---
SHIFT SUMMARY NO ACUTE EVENTS SINCE ARRIVAL. CALL TO PROVIDER FOR ADDITIONAL PAIN MEDICATIONS. PT MEDICATED PER NOV. PT AMBULATES WITH SBA TO RESTROOM AND VOIDED. PT NPO WITH EXCEPTION OF SIPS AND ICE CHIPS PER DR CÁRDENAS.
[2025-08-11] MEDS ORDERED: CefTRIAXone Sodium 1,000 MG in NS 100 ML IV SCH (06:32)
--- NOTE | 2025-08-11 07:37 | NUR ---
DR CÁRDENAS IN TO SEE PT.
--- NOTE | 2025-08-11 18:50 | NUR ---
SUMMARY NO ACUTE CHANGES T/O SHIFT. MEDICATED PT T/O DAY FOR PAIN PER EMAR. PT TOLERATING CLEAR LIQUIDS. LACTIC ACID IMPROVING SLIGHTLY; DR KIM AWARE; IV FLUIDS INFUSING PER ORDERS. PT GETTING OOB AND AMBULATING INDEPENDENTLY.
[2025-08-12 03:33] VITALS: BP 121/82
--- NOTE | 2025-08-12 04:22 | NUR ---
SHIFT SUMMARY POD 1 EX LAP WITH BEZOAR. DRESSING TO UMBILICUS CDI, 3 ADDITIONAL LAP SITES CDI WITH TISSUE ADHESIVE. ABD SOFT AND TENDER. ABDOUL CL DIET, DENIES N/V. IND IN ROOM. IS VOIDING. PAIN MANAGED PER EMAR. DENIES FLATUS, ENCOURAGED AMBULATION TOLERATED. IVF INFUSING PER EMAR. IS A/OX4 WITH VSS. PT CURRENTLY RESTING IN BED WITH RESP EVEN AND CALL LIGHT IN REACH. WILL GIVE REPORT TO ONCOMING RN.
[2025-08-12 07:46] VITALS: BP 128/91
--- NOTE | 2025-08-12 08:03 | NUR ---
DR CÁRDENAS IN TO SEE PT.
--- NOTE | 2025-08-12 10:20 | NUR ---
DR KIM IN TO SEE PT.
--- NOTE | 2025-08-12 11:28 | NUR ---
Pt. is awake in bed when she welcomes my visit. Pt. is pleasnt. A friend or family member is at the bedside. Facilitated a life review and listened with empathy and interest. Pt. displays evidene of being encouraged and verbalizes an expectatyion that she might be discharged tomorrow. Matters of mayela and belief are considered. Prayed with the Pt. Pt. verbalized gratitude for the spiritual care visit.
[2025-08-12 14:34] VITALS: BP 141/95
[2025-08-12] MEDS ORDERED: OXYC5 PO (15:00)
[2025-08-12] MEDS ORDERED: MIRALAX17 GM PO (15:01)
--- NOTE | 2025-08-12 15:44 | NUR ---
DISCHARGING REVIEWED DC INSTRUCTIONS W/PT; VERBALIZED UNDERSTANDING. PROVIDED WRITTEN SCRIPT AND SENT MIRALAX SCRIPT TO [facility] PER PT REQUEST. PROVIDED DRESSING CHANGES AND ABDOMINAL BINDER. PT LEFT UNIT BY AMBULATION, DECLINING WC, ACCOMPANIED BY S.O. W/POSSESSIONS AND DC PAPERWORK IN HAND.
[2025-08-12] MEDS ORDERED: Polyethylene Glycol 3350 17 gm PO SCH (21:00)
== END 2025-08-12 15:45 | disposition home or self-care (01) | DRG 345 ==
LOC: ER 18:29 → ERHOLD 18:30 → MEDS 18:30 → SURS 18:30 → ERHOLD 23:07 → SURS 08-11 01:34 → UNDODEPER 08-11 23:07 → SURS 08-12 15:45
PROVIDERS: Student in an Organized Health Care Education/Training Program; Surgery; ADMIT Student in an Organized Health Care Education/Training Program
PROC: 0DC80ZZ Extirpation of Matter from Small Intestine, Open Approach (ICD-10-PCS; principal; 2025-08-10 23:00)
PROC: 3E03329 Introduction of Other Anti-infective into Peripheral Vein, Percutaneous Approach (ICD-10-PCS; 2025-08-11)
DX: T18.3XXA Foreign body in small intestine, initial encounter (principal); K56.699 Other intestinal obstruction unspecified as to partial versus complete obstruction; J45.909 Unspecified asthma, uncomplicated; G43.909 Migraine, unspecified, not intractable, without status migrainosus; F31.9 Bipolar disorder, unspecified; I10 Essential (primary) hypertension; D72.829 Elevated white blood cell count, unspecified; Z87.891 Personal history of nicotine dependence; Z79.891 Long term (current) use of opiate analgesic; Z98.818 Other dental procedure status; Z79.899 Other long term (current) drug therapy; Z88.1 Allergy status to other antibiotic agents
CPT/HCPCS: 36415; 74177; 80053; 81001; 83605; 83690; 83735; 84703; 85025; 87086; 87147; 94762; 96361; 96365-59; 96367; 96375; 96376; 99285-25; A9270; G0378; J0295; J0696; J1885; J2250; J2405; J2704; J2765; J3010; J7030; J7120; Q9967